=== PATIENT | male | born 1980 ===

== ENCOUNTER 2017-10-07 16:49 | Emergency (ER) | payer OTHER, BC ==
--- NOTE | 2017-10-07 17:06 | C.PDOC ---
History Of Present Illness 37 year old male brought in by ambulance for evaluation of left ankle injury sustained today. Patient states he twisted his left ankle while stepping down while at work. He then felt a crunch in his leg and then instant pain, and called EMS. Time Seen by Provider: 10/07/17 17:00 Chief Complaint (Nursing): Lower Extremity Problem/Injury History Per: Patient History/Exam Limitations: no limitations Onset/Duration Of Symptoms: Hrs Current Symptoms Are (Timing): Still Present Past Medical History Reviewed: Historical Data, Nursing Documentation, Vital Signs Vital Signs: Last Vital Signs Temp 98.1 F 10/07/17 18:26 Pulse 97 H 10/07/17 18:26 Resp 20 10/07/17 18:26 BP 136/86 10/07/17 18:26 Pulse Ox 97 10/07/17 18:26 Family History: States: Unknown Family Hx Review Of Systems Musculoskeletal: Positive for: Foot Pain (left ankle) Neurological: Negative for: Weakness, Numbness Physical Exam - Physical Exam Appears: Well, Non-toxic, No Acute Distress Skin: Warm, Dry, No Rash Head: Atraumatic, Normacephalic Eye(s): bilateral: Normal Inspection Extremity: Tenderness (to the lateral left ankle), Capillary Refill (is normal) , No Deformity, Swelling (to the lateral left ankle), Other (Left foot and digits are unremarkable ) Pulses: Left Dorsalis Pedis: Normal, Right Dorsalis Pedis: Normal Neurological/Psych: Oriented x3, Normal Speech ED Course And Treatment O2 Sat by Pulse Oximetry: 96 (RA) Pulse Ox Interpretation: Normal Medical Decision Making Medical Decision Making: Impression: Left ankle pain, rule out fracture Plan: --Motrin 600 mg PO --X-ray of left ankle Xray shows no fracture Aircast applied by CP and patient instructed on crutch walking. Recommend RICE and analgesics can follow up with ortho Disposition Counseled Patient/Family Regarding: Studies Performed, Diagnosis, Need For Followup, Rx Given - Disposition Referrals: Ken Pedersen MD [Staff Provider] - Disposition: HOME/ ROUTINE Disposition Time: 17:38 Condition: GOOD Additional Instructions: Your xray was normal, no fracture. Please apply ice to area 15 minutes three times a day. Take Motrin as needed for pain every 6 hours, with food to not upset stomach. Follow up with orthopedic if pain persists over one week. Prescriptions: Ibuprofen [Motrin] 600 mg PO Q8 #30 tab Instructions: Ankle Sprain (DC) Forms: [employer] (Urdu), Work Excuse - POA Present On Arrival: Falls Or Trauma (ankle injury) - Clinical Impression Clinical Impression: Left ankle sprain - PA / [employer] / Resident Statement MD/DO has reviewed & agrees with the documentation as recorded. - Scribe Statement The provider has reviewed the documentation as recorded by the Scribe (Adelaida Pablo) All medical record entries made by the Scribe were at my direction and personally dictated by me. I have reviewed the chart and agree that the record accurately reflects my personal performance of the history, physical exam, medical decision making, and the department course for this patient. I have also personally directed, reviewed, and agree with the discharge instructions and disposition.
--- NOTE | 2017-10-07 17:47 | RAD ---
PROCEDURE: Left Ankle Radiographs. HISTORY: pain and swelling s.p twisting injury COMPARISON: None FINDINGS: BONES: Normal. No fracture. JOINTS: Normal. No osteoarthritis. Ankle mortise maintained. Talar dome intact SOFT TISSUES: Oral soft tissue swelling indicating possible ligamentous injury. OTHER FINDINGS: None. IMPRESSION: No acute fracture. Lateral soft tissue swelling.
[2017-10-07 18:27] VITALS: BP 136/86; PULSE 97; RESP 20; TEMP 98.1
[2017-10-07 20:32] VITALS: O2SAT 96
== END 2017-10-07 18:27 | disposition home or self-care (01) ==
LOC: C.ER 16:49
DX: S93.402A Sprain of unspecified ligament of left ankle, initial encounter (principal); X50.1XXA Overexertion from prolonged static or awkward postures, initial encounter; Y92.89 Other specified places as the place of occurrence of the external cause; Y99.0 Civilian activity done for income or pay